=== PATIENT | female | born 1965 | race Caucasian/White ===

== ENCOUNTER → 2017-03-31 | Outpatient (CLI) | payer BC ==
[~2017-03-31] MED LIST: SIMV20TA2 PO
--- NOTE | 2017-03-31 14:33 | MAMMOGRAPHY REPORT ---
BILATERAL DIGITAL DIAGNOSTIC MAMMOGRAM TOMOSYNTHESIS WITH CAD AND TARGETED RIGHT ULTRASOUND: 03/31/20 17 CLINICAL HISTORY: The patient reports intermittent right breast pain in the periareolar region for ap proximately 3-4 weeks. She denies any new palpable lumps, nipple discharge, or other complaints. TECHNIQUE: Breast tomosynthesis in addition to standard 2D mammography was performed. Current study was also evaluated with a Computer Aided Detection (CAD) system. Bilateral CC and MLO 2-D and tomosy nthesis images were obtained. COMPARISON: Comparison is made to exams dated: 01/19/2012 mammogram - [facility], , and 02/11/2009. BREAST COMPOSITION: The tissue of both breasts is heterogeneously dense, which may obscure small mas ses. FINDINGS: There are no suspicious masses, calcifications, or areas of architectural distortion noted within either breast mammographically. Again noted are numerous round/oval circumscribed masses scat tered bilaterally, which are considered benign given the multiplicity and bilaterality and likely rep resent cysts. A few scattered bilateral benign-appearing calcifications are again noted. Targeted ultrasound was performed of the area of pain pointed out by the patient in the right periare olar and subareolar region. Multiple circumscribed anechoic masses are noted in the periareolar and subareolar breast, consistent with benign cysts. No suspicious masses or other suspicious sonographi c abnormalities are evident. IMPRESSION: ACR BI-RADS CATEGORY 2: BENIGN, TARGETED ULTRASOUND ACR BI-RADS CATEGORY 2: BENIGN No suspicious mammographic or sonographic abnormality at the site of intermittent right breast pain. There is no mammographic or targeted sonographic evidence of malignancy. Recommend clinical follow- up, and recommend routine bilateral screening mammograms in one year. The patient has been verbally notified of the results. Approximately 10% of breast cancers are not detected with mammography. A negative mammographic report should not delay biopsy if a clinically suggestive mass is present. Devorah Griffin M.D. /:03/31/2017 10:57:34 Program Developer: Katia AUGUSTINE)([place]), [facility] letter sent: Normal 1/2 BI-RADS Code: ACR BI-RADS Category 2: Benign Ultrasound BI-RADS: ACR BI-RADS Category 2: Benign
== END | disposition home or self-care (01) ==
LOC: C.MAMM 10:26
PROVIDERS: ATTEND Family Medicine
DX: N64.4 Mastodynia (principal)

== ENCOUNTER → 2017-05-12 | Outpatient (CLI) | payer BC | END | disposition home or self-care (01) | LOC: C.LABSPEC 16:45 | PROVIDERS: ATTEND Podiatrist Primary Podiatric Medicine | DX: B35.1 Tinea unguium (principal) ==

== ENCOUNTER 2020-02-01 12:51 | Inpatient (IN) ==
--- OUTSIDE RECORDS SUMMARY | 2020-02-01 12:53 | External Medical Summary | Continuity of Care Document ---
:1965 Author Name Eleanor Smyth, Provider Address Unavailable Unavailable , Care Team Providers Name Role Phone Aniceto Romeo M.D. Unavailable [email or web address] Unavailable Problems Active medical history not documented Allergies and Adverse Reactions Allergy history not documented Medications Medications not documented Procedures Procedures not documented Immunizations Immunizations not documented Plan of Treatment Planned Observations Planned Goals not documented Results No Known Results Results not documented Encounters Appointment; Aniceto Romeo M.D. 05-Jan-2010 13:30 Encounter Diagnosis: Problem not documented
--- OUTSIDE RECORDS SUMMARY | 2020-02-01 12:54 | External Medical Summary | Continuity of Care Document ---
:1965 Author Name Eleanor Smyth, Provider Address Unavailable Unavailable , Care Team Providers Name Role Phone Aniceto Romeo M.D. Unavailable [email or web address] [email or web address] CALL Unavailable Unavailable Problems Active [...]
[2020-02-01] MEDS ORDERED: MoRPHine SULFATE 10 MG/ML CARP/VIAL IV STA (15:28)
[2020-02-01] MEDS ORDERED: SODIUM CHLORIDE 0.9% 1000ML 1,000 ML IV ONE (15:28)
[2020-02-01] MEDS ORDERED: ONDANSETRON INJ 2 MG/ML 2 ML VIAL IV STA (15:28)
[2020-02-01 15:58] LABS: Basophils # (auto) 0.05 K/uL (0-0.2); Basophils % (auto) 0.3 %; Eosinophils # (auto) 0.08 K/uL (0-0.5); Eosinophils % (auto) 0.5 %; Hematocrit (blood only) 46.4 % (37-47); Hemoglobin 16.4 g/dL (12.0-16.0); Immature Granulocytes # (auto) 0.09 K/uL (0.00-0.02); Immature Granulocytes % (auto) 0.6 %; Lymphocytes # (auto) 2.45 K/uL (1.2-3.4); Lymphocytes % (auto) 15.6 %; Mean Corpuscular Hemoglobin 32.7 pg (25-34); Mean Corpuscular Hgb Conc 35.3 g/dL (32-36); Mean Corpuscular Volume 92.4 fL (80-100); Mean Platelet Volume 10.3 fL (7.4-10.4); Monocytes # (auto) 1.49 K/uL (0.11-0.59); Monocytes % (auto) 9.5 %; Neutrophils % (auto) 73.5 %; Platelet Count 350 K/uL (130-400); RDW Coefficient of Variation 14.6 % (11.5-14.5); RDW Standard Deviation 49.4 fL (36.4-46.3); Red Blood Count 5.02 M/uL (4.2-5.4); White Blood Count 15.66 K/uL (4.8-10.8)
[2020-02-01 16:03] LABS: iSTAT Creatinine 1.1 mg/dl (0.6-1.3); iSTAT Ionized Calcium 1.2 mmol/l (1.12-1.32); iSTAT Potassium 4.5 mmol/L (3.3-5.0)
[2020-02-01 16:10] LABS: INR 0.9 (0.9-1.1); Partial Thromboplastin Time 28.8 Seconds (21.0-31.0); Prothrombin Time 9.9 Seconds (9.0-12.0)
[2020-02-01 16:15] LABS: Albumin Level 3.8 gm/dl (3.4-5.0); BUN Creatinine Ratio 13.4 (10-20); Calcium 9.4 mg/dl (8.5-10.1); Creatinine Clr Calc Pharmacy 66.9 ml/min; Est GFR (African American) 58.2; Est GFR (Non-African American) 50.2; Potassium 4.4 mmol/L (3.5-5.1)
[2020-02-01 16:17] LABS: Albumin Globulin Ratio 0.9 (0.9-2); Bilirubin,Total 0.6 mg/dl (0.2-1); Globulin 4.3 gm/dl (2.5-4.0); Total Protein 8.1 gm/dl (6.4-8.2)
--- NOTE | 2020-02-01 16:34 | Emergency Department Note ---
History of Present Illness General Chief Complaint: Flank Pain Stated Complaint: PAIN LOWER RT SIDE Time Seen by Provider: 02/01/20 15:02 Source: patient Mode of arrival: ambulatory Limitations: no limitations History of Present Illness Provider Complaint: abdominal pain and flank pain Onset (ago): 6 day(s) Pain Consistency: intermittent Radiation: RLQ Migration to: RLQ Severity: severe Maximum Pain Intensity: 8 Current Pain Intensity: 8 Quality: + sharp Relieved By: + nothing Exacerbated By: + eating (red meat) Associated Symptoms: + nausea and + anorexia; no vomiting, no diarrhea, no fever, no chills, no constipation, no dysuria, no hematemesis, no hematochezia, no hematuria, no headache, no neck pain, no back pain, no chest pain and no weakness Treatments prior to arrival: none This 54-year-old female patient presents to the emergency department today for evaluation of right lower quadrant abdominal pain. Pain began last Tuesday and has been intermittent. The patient states pain seems to flareup the day after she eats red meat. On Tuesday, the pain returned and at 530 this morning, it returned again and was significantly worse. The patient states the pain seems to be in the right lower quadrant and radiates around toward the right flank pain she does have a history of kidney stones, but states this pain is much different and much lower. The patient states there has been no hematuria. There is no diarrhea or constipation. She did drink prune juice earlier today, and was concerned for possible bowel blockage, but states she had normal bowel movements yesterday and has had several loose, small bowel movements since that time. Patient denies any fever. There has been a decreased appetite. She denies any numbness, tingling, weakness, chest pain, dyspnea, dizziness, vomiting, or other associated symptoms. Home Medications Home Medications Medication Instructions Recorded Confirmed Type No Known Home Medications 02/01/20 02/01/20 History Allergies Allergy/AdvReac Type Severity Reaction Status Date / Time No Known Allergies Allergy Unknown Verified 02/01/20 15:48 Past Med/Surg History Medical History Hyperlipidemia TIA (transient ischemic attack) Social History Smoking Status: Never smoker Feels Safe at Home: Yes Review of Systems A total of 10 systems reviewed and were otherwise negative Physical Exam Vital Signs: Vital Signs - 24 hr 02/01/20 13:10 02/01/20 16:00 02/01/20 16:30 Temperature 36.8 C Temperature Source Oral Pulse Rate 91 H Pulse Rate [Right Finger] 56 L Respiratory Rate 18 20 Blood Pressure 140/94 Blood Pressure [Le ft Arm] 117/69 Blood Pressure Christy n 109 Blood Pressure Christy n [Left Arm] 85 Pulse Oximetry 98 93 Oxygen Delivery Me thod Room Air Room Air Room Air Sepsis Recent Feve r Within 48 Hours No Sepsis New/Unexpla ined Change in Men lizz Status No Sepsis Action Take n by Nursing No Action Required 02/01/20 16:38 Temperature 37.2 C Temperature Source Oral Pulse Rate Pulse Rate [Right Finger] Respiratory Rate Blood Pressure Blood Pressure [Le ft Arm] Blood Pressure Christy n Blood Pressure Christy n [Left Arm] Pulse Oximetry Oxygen Delivery Me thod Sepsis Recent Feve r Within 48 Hours Sepsis New/Unexpla ined Change in Men lizz Status Sepsis Action Take n by Nursing Physical Exam: VITALS: Vitals are noted on the nurse's note and reviewed by myself. Vital signs stable. GENERAL: This is a 54-year-old obese white female, in no acute distress, nondiaphoretic, well-developed well-nourished. SKIN: The skin was without rashes, erythema, edema, or bruising. There is no tenting of the skin. Capillary refill less than 2 seconds. HEAD: Normocephalic atraumatic. EYES: Conjunctivae without injection, sclerae without icterus. NECK: Supple without nuchal rigidity. No lymphadenopathy. No thyromegaly. Cervical spine is nontender. No JVD. HEART: Regular rate and rhythm without murmurs gallops or rubs. LUNGS: Clear to auscultation bilaterally without wheezes, rales or rhonchi. No retractions or accessory muscle use. ABDOMEN: Positive bowel sounds x 4. Normal tympanic percussion. Right lower quadrant tenderness palpation over McBurney's point. Abdomen otherwise soft, nontender, without masses or organomegaly. Hopper sign negative. No guarding or rebound tenderness. No CVA tenderness to palpation. MUSCULOSKELETAL: No muscle atrophy, erythema, or edema noted. Full range of motion without joint tenderness in all extremities. No tenderness to palpation. Normal gait. Strength 5/5 throughout. NEURO: Patient was alert and oriented to person place and time. Normal s ensation to light and sharp touch. No focal neurological deficits. Course Course The patient was seen and evaluated as above. An order was placed for continuous cardiac monitoring. The monitor shows a normal sinus rhythm at a rate of 91 bpm. IV access obtained, labs drawn. Patient medicated with IV fluids, Zofran, morphine. Imaging performed and reviewed by myself and radiologist as noted. Labs reviewed by myself. I discussed the findings with the patient at bedside. She is experiencing increased pain. She was given repeat dose of morphine. I discussed the case with Dr. Escobedo, urologist on-call. He was agreeable with admission to medicine, keeping the patient n.p.o. after midnight. Will watch for the consult. I discussed the case with the security project manager. I [facility] the case [facility] She did agree to see and evaluate the patient. Administered Medications Discontinued Medications Sodium Chloride (Nss 1000ml) 1,000 mls @ 999 mls/hr IV .Q1H1M ONE Stop: 02/01/20 16:28 Last Admin: 02/01/20 16:12 Dose: 999 mls/hr Documented by: [id number] Ioversol (Ioversol 100ml) 93 ml IV ONCE ONE Stop: 02/01/20 16:43 Last Admin: 02/01/20 16:44 Dose: 93 ml Documented by: [id number] Morphine Sulfate (Morphine Sulfate 10 Mg/Ml Carp/Vial) 8 mg IV NOW STA Stop: 02/01/20 15:29 Last Admin: 02/01/20 16:13 Dose: 8 mg Documented by: [id number] Ondansetron HCl (Ondansetron Inj 2 Mg/Ml 2 Ml Vial) 4 mg IV NOW STA Stop: 02/01/20 15:29 Last Admin: 02/01/20 16:13 Dose: 4 mg Documented by: [id number] Medical Decision Making Differential Diagnosis + UTI, + obstruction, + mesenteric ischemia, + aortic pathology, + infections, + inflammatory bowel disease, + renal colic, + ectopic (female), + ovarian torsion (female), + tubo-ovarian abscesses (female), + pelvic inflammatory disease (female), + abdominal pain, + appendicitis, + calculus of kidney, + constipation, + diverticulitis, + endometriosis, + gastroenteritis, + pancreatitis and + small bowel obstruction Medical Records Attestation: I reviewed the patient's medical records. Home Medications Current Medication List: was personally reviewed by me Laboratory Data Attestation: I reviewed the patient's lab results. Leukocytosis of 15,000. No significant anemia or thrombocytopenia. Renal, hepatic function electrolytes without significant abnormality. Coags normal. Urinalysis cloudy and positive for calcium oxalate crystals, but no bacteria or nitrates. This does appear to be contaminated specimen. Result diagrams: 02/01/20 15:45 02/01/20 15:45 Lab Results 02/01/20 02/01/20 02/01/20 Range/Units 15:45 15:45 15:45 WBC 15.66 H (4.8-10.8) K/uL RBC 5.02 (4.2-5.4) M/uL Hgb 16.4 H (12.0-16.0) g/dL POC Hgb (12.0-16.0) g/dl Hct 46.4 (37-47) % POC Hct (37-47) % MCV 92.4 (80-100) fL MCH 32.7 (25-34) pg MCHC 35.3 (32-36) g/dL RDW Std Deviation 49.4 H (36.4-46.3) fL RDW Coeff of Merly 14.6 H (11.5-14.5) % Plt Count 350 (130-400) K/uL MPV 10.3 (7.4-10.4) fL Immature Gran % (Auto) 0.6 % Neut % (Auto) 73.5 % Lymph % (Auto) 15.6 % Metcalfe % (Auto) 9.5 % Eos % (Auto) 0.5 % Baso % (Auto) 0.3 % Neut # (Auto) 11.50 H (1.4-6.5) K/uL Lymph # (Auto) 2.45 (1.2-3.4) K/uL Metcalfe # (Auto) 1.49 H (0.11-0.59) K/uL Eos # (Auto) 0.08 (0-0.5) K/uL Baso # (Auto) 0.05 (0-0.2) K/uL Immature Gran # (Auto) 0.09 H (0.00-0.02) K/uL PT 9.9 (9.0-12.0) Seconds INR 0.9 (0.9-1.1) APTT 28.8 (21.0-31.0) Seconds PTT Ratio 1.0 POC Sodium (135-144) mmol/L Sodium 139 (136-145) mmol/L POC Potassium (3.3-5.0) mmol/L Potassium 4.4 (3.5-5.1) mmol/L POC Chloride (101-112) mmol/L Chloride 108 H (98-107) mmol/L Carbon Dioxide 24 (21-32) mmol/L POC Total CO2 (24-31) mmol/L Anion Gap 7.0 (3-11) POC Anion Gap (16-25) mmol/L POC BUN (7-18) mg/dl BUN 16 (7-18) mg/dl Creatinine 1.22 H (0.6-1.2) mg/dl POC Creatinine (0.6-1.3) mg/dl Est Cr Clr Drug Dosing 66.9 ml/min Est GFR ( Amer) 58.2 Est GFR (Non-Af Amer) 50.2 BUN/Creatinine Ratio 13.4 (10-20) Glucose 91 (70-99) mg/dl POC Glucose (other) (70-99) mg/dl Calcium 9.4 (8.5-10.1) mg/dl POC Ioniz Calcium Kenney (1.12-1.32) mmol/l Total Bilirubin 0.6 (0.2-1) mg/dl AST 23 (15-37) U/L ALT 25 (12-78) U/L Alkaline Phosphatase 96 (45-117) U/L Total Protein 8.1 (6.4-8.2) gm/dl Albumin 3.8 (3.4-5.0) gm/dl Globulin 4.3 H (2.5-4.0) gm/dl Albumin/Globulin Ratio 0.9 (0.9-2) Lipase 85 (73-393) U/L Urine Color Urine Appearance (Clear) Urine pH (4.5-7.5) Ur Specific Brooks (1.000-1.030) Urine Protein (Negative) Urine Glucose (UA) (Negative) Urine Ketones (Negative) Urine Blood (Negative) Urine Nitrite (Negative) Urine Bilirubin (Negative) Urine Urobilinogen (Negative) Ur Leukocyte Esterase (Negative) Urine WBC (Auto) (0-5) /hpf Urine RBC (Auto) (0-4) /hpf U Hyaline Cast (Auto) (0-5) /lpf U Epithel Cells (Auto) (0-5) /lpf Urine Bacteria (Auto) (Negative) Urine Crystals (None Prsent) Calcium Oxalate Crystal (None Prsent) POC Ur Test (NEG) 02/01/20 02/01/20 02/01/20 Range/Units 15:50 16:00 16:00 WBC (4.8-10.8) K/uL RBC (4.2-5.4) M/uL Hgb (12.0-16.0) g/dL POC Hgb 17.0 H (12.0-16.0) g/dl Hct (37-47) % POC Hct 50 H (37-47) % MCV (80-100) fL MCH (25-34) pg MCHC (32-36) g/dL RDW Std Deviation (36.4-46.3) fL RDW Coeff of Merly (11.5-14.5) % Plt Count (130-400) K/uL MPV (7.4-10.4) fL Immature Gran % (Auto) % Neut % (Auto) % Lymph % (Auto) % Metcalfe % (Auto) % Eos % (Auto) % Baso % (Auto) % Neut # (Auto) (1.4-6.5) K/uL Lymph # (Auto) (1.2-3.4) K/uL Metcalfe # (Auto) (0.11-0.59) K/uL Eos # (Auto) (0-0.5) K/uL Baso # (Auto) (0-0.2) K/uL Immature Gran # (Auto) (0.00-0.02) K/uL PT (9.0-12.0) Seconds INR (0.9-1.1) APTT (21.0-31.0) Seconds PTT Ratio POC Sodium 140 (135-144) mmol/L Sodium (136-145) mmol/L POC Potassium 4.5 (3.3-5.0) mmol/L Potassium (3.5-5.1) mmol/L POC Chloride 106 (101-112) mmol/L Chloride (98-107) mmol/L Carbon Dioxide (21-32) mmol/L POC Total CO2 23 L (24-31) mmol/L Anion Gap (3-11) POC Anion Gap 16.0 (16-25) mmol/L POC BUN 18 (7-18) mg/dl BUN (7-18) mg/dl Creatinine (0.6-1.2) mg/dl POC Creatinine 1.1 (0.6-1.3) mg/dl Est Cr Clr Drug Dosing ml/min Est GFR ( Amer) Est GFR (Non-Af Amer) BUN/Creatinine Ratio (10-20) Glucose (70-99) mg/dl POC Glucose (other) 95 (70-99) mg/dl Calcium (8.5-10.1) mg/dl POC Ioniz Calcium Kenney 1.20 (1.12-1.32) mmol/l Total Bilirubin (0.2-1) mg/dl AST (15-37) U/L ALT (12-78) U/L Alkaline Phosphatase (45-117) U/L Total Protein (6.4-8.2) gm/dl Albumin (3.4-5.0) gm/dl Globulin (2.5-4.0) gm/dl Albumin/Globulin Ratio (0.9-2) Lipase (73-393) U/L Urine Color Yellow Urine Appearance Cloudy A (Clear) Urine pH 5.0 (4.5-7.5) Ur Specific Brooks 1.028 (1.000-1.030) Urine Protein Negative (Negative) Urine Glucose (UA) Negative (Negative) Urine Ketones Negative (Negative) Urine Blood 3+ H (Negative) Urine Nitrite Negative (Negative) Urine Bilirubin Negative (Negative) Urine Urobilinogen Negative (Negative) Ur Leukocyte Esterase Trace H (Negative) Urine WBC (Auto) 5-10 H (0-5) /hpf Urine RBC (Auto) 0-4 (0-4) /hpf U Hyaline Cast (Auto) 1-5 (0-5) /lpf U Epithel Cells (Auto) >30 H (0-5) /lpf Urine Bacteria (Auto) Negative (Negative) Urine Crystals Calcium Oxalate A (None Prsent) Calcium Oxalate Crystal Present A (None Prsent) POC Ur Test NEG (NEG) Imaging Data Radiologist's Impression: CT abd pelvis IV con only CLINICAL HISTORY: Right lower quadrant abdominal pain COMPARISON STUDY: January 2012 TECHNIQUE: The patient was scanned in a dynamic helical fashion during intravenous administration of 93 cc of Optiray 320 A dose lowering technique was utilized adhering to the principles of ALARA. CT DOSE: 957.27 mGy.cm FINDINGS: Lower chest: There are bibasilar atelectatic changes. Liver: There is scattered hypodense hepatic lesions, likely representing cysts. Several these are new or larger than when compared the preceding study. Gallbladder: Surgically absent Spleen: Normal in size and attenuation. Pancreas: Unremarkable. Adrenal glands: r there is a 12 mm left adrenal nodule minimally larger than on the preceding study. Kidneys: There is right-sided hydronephrosis and hydroureter. There is right- sided perinephric stranding. There is a diminished right-sided nephrogram. There is a mid right ureteral calculus measuring 7.5 mm. No bladder calculi are visualized Bowel: There are no transition zones to indicate bowel obstruction. The appendix appears normal. There is no acute diverticulitis. There are multiple fluid- filled colonic and small bowel loops with scattered air-fluid levels. This may represent ileus. Peritoneum: There is no intraperitoneal free air or abdominal ascites. Vasculature: The abdominal aorta is normal in course and caliber. Adenopathy: None. Pelvic viscera: The uterus is surgically absent. Skeletal structures: No destructive osseous lesions are seen. IMPRESSION: 1. 7.5 mm mid right ureteral calculus at the S2 level with secondary hydroureteronephrosis, perinephric stranding, and periureteral stranding 2. Normal appendix 3. No evidence of bowel obstruction. No evidence of free air 4. Multiple fluid-filled loops of large and small bowel with scattered air-fluid levels. This likely represents an ileus. ACT 112: Negative or not required by law. Electronically signed by: Krishna James M.D. 02/01/2020 4:56 PM Blood Pressure Blood Pressure Findings: Normal blood pressure MDM Narrative This 54-year-old female patient presents the emergency department today for evaluation of right lower quadrant abdominal pain radiating to the right flank pain. The patient does have a history of kidney stones, but states this pain is different. Given the location of the pain, we did elect to perform laboratory evaluation and CT imaging to evaluate these symptoms. CT consistent with 7.5 mm mid right ureteral calculus with secondary hydroureteronephrosis, perinephric stranding, and periureteral stranding. Urinalysis not clearly infected, the patient does have a leukocytosis of 15,000. She was medicated here in the ED with IV morphine and ceftriaxone. She was given IV fluids. I did speak with the urologist, who was agreeable with admission. I did discuss this recommendation with the patient at bedside, and after discussion regarding the benefits versus risks associated with admission, she would like to proceed with admission to the hospital. [facility] Please see hospitalist dictation regarding ongoing management care of this patient. The chart was completed utilizing [employer] Speech voice recognition software. Grammatical errors, random word insertions, pronoun errors, and incomplete sente nces are an occasional consequence of this system due to software limitations, ambient noise, and hardware issues. Any formal questions or concerns about the content, text, or information contained within the body of this dictation should be directly addressed to the provider for clarification. Impression & Plan Acute right lower quadrant pain, Right ureteral calculus Discharge Plan Visit Data Chief Complaint: Flank Pain Stated Complaint: PAIN LOWER RT SIDE ED Provider: Sampson Awan ED Midlevel Provider: Amber Caal Discharge Problem: Acute right lower quadrant pain, Right ureteral calculus Patient Disposition: Admitted As Inpatient Forms Stand Alone Forms: My [employer] Prescriptions Prescriptions: No Action No Known Home Medications RF: 0 Referrals Referrals: Mane Lemons MD [Primary Care Provider] -
[2020-02-01] MEDS ORDERED: IOVERSOL 100ml IV ONE (16:42)
[2020-02-01 16:45] LABS: Appearance Urine Cloudy (Clear); Bacteria Urine Automated Negative (Negative); Bilirubin Urine Negative (Negative); Blood Urine 3+ (Negative); Color Urine Yellow; Epithelial Cell Urine Auto >30 /lpf (0-5); Glucose Urine UA Negative (Negative); Ketones Urine Negative (Negative); Leukocyte Esterase Urine Trace (Negative); Nitrite Urine Negative (Negative); Protein Urine Negative (Negative); RBC Urine Automated 0-4 /hpf (0-4); Specific Gravity Urine 1.028 (1.000-1.030); Urobilinogen Urine Negative (Negative)
[2020-02-01 16:56] LABS: Calcium Oxalate Crystals Urine Present (None Prsent)
--- NOTE | 2020-02-01 16:58 | CT Scan Report ---
CT abd pelvis IV con only CLINICAL HISTORY: Right lower quadrant abdominal pain COMPARISON STUDY: January 2012 TECHNIQUE: The patient was scanned in a dynamic helical fashion during intravenous administration of 93 cc of Optiray 320 A dose lowering technique was utilized adhering to the principles of ALARA. CT DOSE: 957.27 mGy.cm FINDINGS: Lower chest: There are bibasilar atelectatic changes. Liver: There is scattered hypodense hepatic lesions, likely representing cysts. Several these are new or larger than when compared the preceding study. Gallbladder: Surgically absent Spleen: Normal in size and attenuation. Pancreas: Unremarkable. Adrenal glands: r there is a 12 mm left adrenal nodule minimally larger than on the preceding study. Kidneys: There is right-sided hydronephrosis and hydroureter. There is right-sided perinephric strand ing. There is a diminished right-sided nephrogram. There is a mid right ureteral calculus measuring 7 .5 mm. No bladder calculi are visualized Bowel: There are no transition zones to indicate bowel obstruction. The appendix appears normal. Ther e is no acute diverticulitis. There are multiple fluid-filled colonic and small bowel loops with scat tered air-fluid levels. This may represent ileus. Peritoneum: There is no intraperitoneal free air or abdominal ascites. Vasculature: The abdominal aorta is normal in course and caliber. Adenopathy: None. Pelvic viscera: The uterus is surgically absent. Skeletal structures: No destructive osseous lesions are seen. IMPRESSION: 1. 7.5 mm mid right ureteral calculus at the S2 level with secondary hydroureteronephrosis, perinephr ic stranding, and periureteral stranding 2. Normal appendix 3. No evidence of bowel obstruction. No evidence of free air 4. Multiple fluid-filled loops of large and small bowel with scattered air-fluid levels. This likely represents an ileus. ACT 112: Negative or not required by law. Electronically signed by: Krishna James M.D. 02/01/2020 4:56 PM
[2020-02-01] MEDS ORDERED: cefTRIAXone SODIUM 2,000 MG/70 ML BAG IV STA (17:03)
[2020-02-01] MEDS ORDERED: MoRPHine SULFATE 4 MG/ML 1 ML CARP\\VIAL IV STA (17:14)
--- NOTE | 2020-02-01 18:21 | History & Physical Report ---
Date of Service February 01, 2020 Assessment & Plan (1) Right ureteral calculus: (2) Hydronephrosis, right: Possible pyelonephrosis Pt is 54 y/o F with PMH dyslipidemia, possible TIA, kidney stones, tobacco use presented to ER with c/o R flank pain x 5 days, worsened today. Denies fever/chi lls, N/V, urinary symptoms. Did drink a lot of prune juice today and has soft stools In ER pt afebrile, vitals stable. WBC: 15, BUN: 16, CR: 1.2, GFR: 50, UA: 3+ blood, trace leuk esterase, 5-10 WBC, no nitrates, no bacteria, CT ABD/PELVIS 7.5 mm mid right ureteral calculus at the S2 level with secondary hydroureteronephrosis, perinephric stranding, and periureteral stranding, Normal appendix, -In ER given 1 mL NSS, morphine total 12 mg IV, Zofran, Rocephin 2 g IV -Urine culture, blood cultures pending -Continue Rocephin daily -Strain all urine -N.p.o. -IVF -Dilaudid as needed pain, Zofran PRN nausea -CBC, BMP in a.m. -We will do preop COVID test in anticipation of patient requiring procedure -Urology consult, ER contacted Dr. Escobedo who is aware (3) CHARMAINE (acute kidney injury): BUN: 16, CR: 1.2, GFR: 50. Patient with baseline GFR greater than 60 with creatinine: 0.9 Likely secondary to obstructing ureteral calculus -Monitor renal functions -Avoid Toradol for now and other nephrotoxic agents (4) Ileus: CT ABD/PELVIS: Multiple fluid-filled loops of large and small bowel with scattered air-fluid levels. This likely represents an ileus. No evidence of bowel obstruction. No evidence of free air -NPO for now -IVF -Monitor. Consider KUB tomorrow or following day. Will hold on ordering right now in case of urology procedure and needed additional KUB for after procedure, as pt very worried about insurance coverage and her costs (5) Hyperlipidemia: Patient refuses medications outpatient (6) Tobacco use: -Smoking cessation encouraged -Patient denies nicotine patch at this time DVT Prophylaxis -SCDs Full Code Follows with Dr Lemons for routine care Pt was seen and care coordinated with Dr Sanders. See addendum History of Present Illness Chief Complaint: Right flank pain Primary Care Provider: Mane Lemons MD Pt is 54 y/o F with PMH dyslipidemia, possible TIA, kidney stones, tobacco use presented to ER with c/o R flank pain x 5 days. Patient states 5 days ago started with some right flank tenderness that radiated to right lower quadrant. Pain had been waxing and waning however this morning pain increased and has been constant throughout the day. Patient tried taking Aleve earlier in the week taking total 4 tablets without relief. Patient thought maybe flank pain was secondary to constipation however reports has been moving her bowels regularly. Today patient drinks 32 ounces of prune juice and since has had soft stools. Denies dysuria, hematuria, urinary frequency, urinary retention. History of kidney stones in the past needing stent. Denies fever/chills, diaphoresis, N/V, hematochezia, melena, VEL[place]SQUEZ, dizziness, syncope, vision changes, CP, SOB, orthopnea, palpitations, cough, sore throat, choking, otalgia, rhinorrhea, extremity weakness, extremity edema, rashes. Allergies Allergy/AdvReac Type Severity Reaction Status Date / Time No Known Allergies Allergy Unknown Verified 02/01/20 15:48 Home Medications Home Medications Medication Instructions Recorded Confirmed Type No Known Home Medications 02/01/20 02/01/20 History Past Med/Surg History Medical History Hyperlipidemia Kidney stones TIA (transient ischemic attack) Tobacco use Surgical History (Updated 02/01/20 @ 18:26 by Scarlett Deng PA-C) History of cholecystectomy History of hysterectomy Hx of tonsillectomy Family History (Updated 02/01/20 @ 18:26 by Scarlett Deng PA-C) Other Cancer Social History (Updated 02/01/20 @ 18:27 by Scarlett Deng PA-C) Smoking Status: Current every day smoker Cigarettes Per Day: 1 ppd x 28 years; Second Hand Exposure: No; Do You Dip or Chew Tobacco: No; Tobacco Cessation Education Requested by Patient: No Hx Alcohol Use: Yes Alcohol type: hard liquor Alcohol Intake Frequency: 2-4 x/Month Alcohol Intake Frequency Comment: 1-2 beers once week Hx Substance Use: No Preferred Language: Korean 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 Current Living Situation: Spouse and Family Other Information That Helps Us Care for You: No Feels Safe at Home: Yes Safety Concerns: Feels Safe At This Time Review of Systems Review of Systems: All systems reviewed & are unremarkable except as noted in HPI & below Physical Exam Physical Exam: General: no distress, overweight Head: normocephalic, atraumatic Eyes: PERRL, EOM's intact, conjunctiva non-injected, anicteric ENT: normal inspection external ears, nose, mucous membranes moist Neck: supple, trachea midline Lungs: clear, no respiratory distress, no wheezing/rhonchi/rales CV: RRR, no murmur, no JVD, no pretibial edema Abd: normal BS, soft, +mild tenderness to palpation to R CVA, right flank, RLQ without rebound or guarding Ext: no cyanosis, no calf tenderness Neuro: A&O x 3, no focal deficits noted, normal affect Skin: warm, dry Results & Data Results & Data ([facility]) Vital Signs (Past 12 Hours) Vital Signs Temp Pulse Pulse Resp BP BP Pulse Ox 02/01/20 16:38 37.2 C 02/01/20 16:30 56 L 20 117/69 93 02/01/20 13:10 36.8 C 91 H 18 140/94 98 Laboratory Results Short CBC 02/01/20 Range/Units 15:45 WBC 15.66 H (4.8-10.8) K/uL Hgb 16.4 H (12.0-16.0) g/dL Hct 46.4 (37-47) % Plt Count 350 (130-400) K/uL BMP 02/01/20 15:45 Sodium 139 Potassium 4.4 Chloride 108 H Carbon Dioxide 24 BUN 16 Creatinine 1.22 H Glucose 91 Calcium 9.4 Liver Function 02/01/20 Range/Units 15:45 Total Bilirubin 0.6 (0.2-1) mg/dl AST 23 (15-37) U/L ALT 25 (12-78) U/L Alkaline Phosphatase 96 (45-117) U/L Albumin 3.8 (3.4-5.0) gm/dl Urine 02/01/20 Range/Units 16:00 Urine Color Yellow Urine Appearance Cloudy A (Clear) Urine pH 5.0 (4.5-7.5) Ur Specific [place] 1.028 (1.000-1.030) Urine Protein Negative (Negative) Urine Glucose (UA) Negative (Negative) Diagnostic Findings CT ABD/PELVIS: IMPRESSION: 1. 7.5 mm mid right ureteral calculus at the S2 level with secondary hydroureteronephrosis, perinephric stranding, and periureteral stranding 2. Normal appendix 3. No evidence of bowel obstruction. No evidence of free air 4. Multiple fluid-filled loops of large and small bowel with scattered air-fluid levels. This likely represents an ileus. Code Status & VTE Plan VTE Prophylaxis Plan VTE Prophylaxis will be ordered: Yes Supervising Physician Co-Signing Physician Notes Attending Addendum: care coordinated with SHAINA Tomlinson please refer to her notes for full details, I agree with her notes patient seen and examined, records reviewed by myself as well on exam, patient seen resting in bed, comfortable, sleeping but easily awakened pain well controlled no other symptoms VS noted and reviewed oriented x 3, not in distress, speaks in sentences with no effort nor accessory muscle use normal rate, regular rhythm, no murmurs clear breath sounds bilaterally non distended, soft, nontender no CVA tenderness no bipedal edema, erythema, warmth no neuro deficits WBC 15.6 Hg 16[address] abd/pelvis: 1. 7.5 mm mid right ureteral calculus at the S2 level with secondary hydroureteronephrosis, perinephric stranding, and periureteral stranding 2. Normal appendix 3. No evidence of bowel obstruction. No evidence of free air 4. Multiple fluid-filled loops of large and small bowel with scattered air-fluid levels. This likely represents an ileus. ASSESSMENT AND PLAN URETERAL STONE with possible Pyelonephritis Obstructive Uropathy crea 1.2, baseline 0.9 NPO, IV fluids, Urology consulted Ceftriaxone IV other diagnoses and plan of care as per SHAINA Tomlinson. notes Hank Sanders MD
[2020-02-01] MEDS ORDERED: ACETAMINOPHEN 325 MG TAB PO PRN (18:51)
[2020-02-01] MEDS ORDERED: ONDANSETRON INJ 2 MG/ML 2 ML VIAL IV PRN (18:51)
[2020-02-01] MEDS: HYDROmorphone INJ 0.5 MG/0.5 ML SYR IV PRN (19:30)
[2020-02-01] MEDS: SODIUM CHLORIDE 0.9% 1000ML 1,000 ML IV SCH (19:30)
[2020-02-02] MEDS: HYDROmorphone INJ 0.5 MG/0.5 ML SYR IV PRN ×2 (00:08→04:55)
[2020-02-02] MEDS: SODIUM CHLORIDE 0.9% 1000ML 1,000 ML IV SCH (04:51)
[2020-02-02 07:17] LABS: Basophils # (auto) 0.04 K/uL (0-0.2); Basophils % (auto) 0.4 %; Eosinophils # (auto) 0.17 K/uL (0-0.5); Eosinophils % (auto) 1.7 %; Hematocrit (blood only) 38.9 % (37-47); Immature Granulocytes # (auto) 0.05 K/uL (0.00-0.02); Immature Granulocytes % (auto) 0.5 %; Lymphocytes # (auto) 2.87 K/uL (1.2-3.4); Lymphocytes % (auto) 28.7 %; Mean Corpuscular Hgb Conc 33.4 g/dL (32-36); Mean Corpuscular Volume 92.8 fL (80-100); Mean Platelet Volume 10.5 fL (7.4-10.4); Neutrophils # (auto) 5.98 K/uL (1.4-6.5); Neutrophils % (auto) 59.7 %; Platelet Count 298 K/uL (130-400); RDW Coefficient of Variation 14.7 % (11.5-14.5); Red Blood Count 4.19 M/uL (4.2-5.4); White Blood Count 10.01 K/uL (4.8-10.8)
[2020-02-02 07:38] LABS: BUN Creatinine Ratio 12.2 (10-20); Calcium 8.4 mg/dl (8.5-10.1); Est GFR (African American) 75.8; Est GFR (Non-African American) 65.4
--- NOTE | 2020-02-02 08:11 | Anesthesiology Consultation ---
Date of Service February 02, 2020 Assessment & Plan (1) Encounter for pre-operative examination: Chart Review Chart Review: Acceptable Risk for Surgery History Surgery Operation Date: 02/02/20 07:30 Proposed Procedures p Cystoscopy, Right Ureteral Stent Insertion/Removal(Right) - Óscar Escobedo DO Height/Weight Height: 5 ft 10 in Weight: 97.5 kg Allergies Allergy/AdvReac Type Severity Reaction Status Date / Time No Known Allergies Allergy Unknown Verified 02/01/20 15:48 Medications Home Medications Medication Instructions Recorded Confirmed Last Taken No Known Home Medications 02/01/20 02/01/20 Unknown Active Medications Generic Name Dose Route Start Last Admin Trade Name Freq PRN Reason Stop Dose Admin Hydromorphone HCl 0.5 mg 02/01/20 18:51 02/02/20 04:55 Hydromorphone Inj 0.5 Mg/0.5 Ml Syr IV 02/15/20 18:50 0.5 mg Q4H PRN Administration Pain Sodium Chloride 1,000 mls @ 100 mls/hr 02/01/20 18:51 02/02/20 04:51 Nss 1000ml IV 02/02/20 14:50 100 mls/hr .Q10H MARIA FERNANDA Administration Past Medical History Medical History Hyperlipidemia Kidney stones TIA (transient ischemic attack) Tobacco use Past Family History Family History Other Cancer Past Surgical History Surgical History History of cholecystectomy History of hysterectomy Hx of tonsillectomy Social History Smoking Status: Current every day smoker tobacco type: cigarettes Smoking cigarettes per day: 1 ppd x 28 years Do You Dip or Chew Tobacco: No Hx Alcohol Use: Yes Alcohol type: hard liquor alcohol intake frequency: a few times a month Hx Substance Use: No substance use type: does not use Physical Exam Vital Signs Last Vital Signs Temp 36.8 C 02/02/20 07:37 Pulse 61 02/02/20 07:37 Resp 20 02/02/20 07:37 BP 99/59 L 02/02/20 07:37 Pulse Ox 90 02/02/20 07:37 Testing Laboratory Results 02/02/20 06:12 PT 9.9 Seconds (9.0-12.0) 02/01/20 15:45 INR 0.9 (0.9-1.1) 02/01/20 15:45 APTT 28.8 Seconds (21.0-31.0) 02/01/20 15:45 Urine Color Yellow 02/01/20 16:00 Urine Appearance Cloudy (Clear) A 02/01/20 16:00 Urine pH 5.0 (4.5-7.5) 02/01/20 16:00 Ur Specific Levels 1.028 (1.000-1.030) 02/01/20 16:00 Urine Protein Negative (Negative) 02/01/20 16:00 Urine Glucose (UA) Negative (Negative) 02/01/20 16:00 Urine Ketones Negative (Negative) 02/01/20 16:00 Urine Nitrite Negative (Negative) 02/01/20 16:00 Ur Leukocyte Esterase Trace (Negative) H 02/01/20 16:00 Urine WBC (Auto) 5-10 /hpf (0-5) H 02/01/20 16:00 Urine RBC (Auto) 0-4 /hpf (0-4) 02/01/20 16:00 U Hyaline Cast (Auto) 1-5 /lpf (0-5) 02/01/20 16:00 U Epithel Cells (Auto) >30 /lpf (0-5) H 02/01/20 16:00 Urine Bacteria (Auto) Negative (Negative) 02/01/20 16:00 02/01/20 16:00 POC Ur Test NEG
[2020-02-02] MEDS ORDERED: PROPOFOL IV EMULSION 10 MG/ML 20 ML VIAL IV ONE (10:35)
[2020-02-02] MEDS ORDERED: MIDAZOLAM HCL 1 MG/ML 2ML VIAL ONE ×2 (10:35→10:59)
[2020-02-02] MEDS ORDERED: fentaNYL citrate 100 MCG/2 ML VIAL ONE (10:35)
[2020-02-02] MEDS ORDERED: LIDOCAINE HCL 2% 2 ML VIAL/AMP(20MG/ML) INFIL ONE (10:35)
[2020-02-02] MEDS ORDERED: ONDANSETRON INJ 2 MG/ML 2 ML VIAL ONE (10:36)
--- NOTE | 2020-02-02 10:39 | Urology Consultation ---
Date of Consultation February 02, 2020 Assessment & Plan (1) CHARMAINE (acute kidney injury): (2) Hydronephrosis, right: (3) Right ureteral calculus: Risks and benefits discussed at length for procedure. These include bleeding, infection, injury to surrounding tissues or organs, and risks associated with anesthesia. Patient states understanding and agrees to proceed. Will sign consent and schedule. Patient with 7 mm ob right ureteral stone with hydronephrosis. No family history of malignancy. Will proceed with cystoscopy and right stent placement. History of Present Illness Attending Physician: Daily Fang DO History of Present Illness New consultation for patient with stone, discomfort, obstruction, and ill feelings. Patient developed sudden onset of pain into flank going down and radiating into groin and back in waves comes and goes. Can be severe at times. Discussed and reviewed patient's family history for any history of stone disease. Also, discussed patient's medical surgery history especially related to any history of urinary issues or stone disease. Patient was admitted and is undergoing observation. Allergies Allergy/AdvReac Type Severity Reaction Status Date / Time No Known Allergies Allergy Unknown Verified 02/01/20 15:48 Home Medications Home Medications Medication Instructions Recorded Confirmed Type No Known Home Medications 02/01/20 02/01/20 History Patient History Medical History Hyperlipidemia Kidney stones TIA (transient ischemic attack) Tobacco use Surgical History History of cholecystectomy History of hysterectomy Hx of tonsillectomy Family History Other Cancer Social History Smoking Status: Current every day smoker Cigarettes Per Day: 1 ppd x 28 years; Second Hand Exposure: No; Do You Dip or Chew Tobacco: No; Tobacco Cessation Education Requested by Patient: No Hx Alcohol Use: Yes Alcohol type: hard liquor Alcohol Intake Frequency: 2-4 x/Month Alcohol Intake Frequency Comment: 1-2 beers once week Hx Substance Use: No Preferred Language: [place]an Lath Hand Required: No Current Living Situation: Spouse and Family Other Information That Helps Us Care for You: No Feels Safe at Home: Yes Safety Concerns: Feels Safe At This Time Review of Systems Review of Systems: All systems reviewed & are unremarkable except as noted in HPI & below Physical Exam Physical Exam: General: Alert and oriented x 3 in no acute distress. Patient is well nourished and well kept. HEENT: Normocephalic Atraumatic. Inspection normal. Cranial Nerves 2-12 Grossly intact. Nares are clear. Neck is supple. Normal inspection of face. Normal inspection of neck. Neurologic: No deficits on inspection. Baseline for motor function and sensory. Psychologic: Normal affect. Respiratory: Nonlabored. No use of accessory muscles. No tachypnea or dyspnea. Cardiovascular: No tachycardia Skin: [place] and Dry. No rashes or visible lesions. Extremities: Moving without issues. No motor deficits on inspection Lymphatics: No edema Abdomen: Soft Non-distended. No acites. No rebound or guarding. Results & Data ([facility]) Vital Signs (Past 12 Hours) Vital Signs Temp Pulse Pulse Resp BP BP Pulse Ox 02/02/20 07:37 36.8 C 61 20 99/59 L 90 02/02/20 07:00 56 L 02/02/20 03:01 37.2 C 60 16 86/51 L 91 02/02/20 00:34 62 02/01/20 23:54 37.1 C 62 18 103/65 87 L PG Care Time/CCT Total # of Minutes Spent Total Time Spent with Patient: Total time spent is greater than 50% in coordination of care (as documented) at patient's floor/unit and/or counseling patient: Coding Level of Care Code 84093 Inpt Consult Level 5 Diagnoses CHARMAINE (acute kidney injury) N17.9 Hydronephrosis, right N13.30 Right ureteral calculus N20.1
[2020-02-02] MEDS ORDERED: CEFAZOLIN 250 MG/ML 1 GM VIAL ONE (11:07)
[2020-02-02] MEDS ORDERED: ONDANSETRON INJ 2 MG/ML 2 ML VIAL IV PRN (11:13)
[2020-02-02] MEDS ORDERED: fentaNYL citrate 100 MCG/2 ML VIAL IV PRN (11:13)
[2020-02-02] MEDS ORDERED: ATROPINE SULFATE 0.1 MG/ML 10ML SYR IV PRN (11:13)
[2020-02-02] MEDS ORDERED: DIATRIZOATE MEGLUMINE 30% 100ML VIAL INSTIL ONE (11:19)
--- NOTE | 2020-02-02 11:19 | Operative Report ---
PG Post Operative Report Pre & Post Diagnosis PRE: Obstructing stone Right ureter POST: Same Operation Date: 02/02/20 07:30 <No data on this case meets the specified criteria> I identified the patient and participated in the time-out.: Yes Procedure Cystoscopy with right retrograde pyelogram, stone extraction, dilation, aspiration of urine, and stent placment. Operation Date: 02/02/20 07:30 <No data on this case meets the specified criteria> Surgeon Óscar Escobedo, II, DO Biomedical Manager None Estimated Blood Loss 1 Findings Consistent with Post-Op Diagnosis Stent placed in good position. Specimens Urine Right Renal Pelvis Stone Right Ureter Drains 6 Fr Multilength without tether Anesthesia Type MAC Complications none Disposition Disposition: Recovery Room Indications Patient with obstruction. Risks and benefits discussed at length. Description of Procedure Patient was consented and brought back to the operating room. Patient was placed under anesthesia in the supine position and moved to the dorsal lithotomy position. Patient was prepped and draped in the regular sterile fashion. A time out was completed. A 30degree Cystoscope was placed into the bladder and the entire bladder was examined. The UO's were identified. The UO was dilated after a small stone fragment was grasped and extracted from the ureter. The UO was cannulized with a catheter and a retrograde pyelogram was completed. A wire was then placed. Urine was aspirated from the renal pelvis. With the wire in place, a 6 Fr Double J stent was placed. It was confirmed with fluoroscopy. With the stent in place, the bladder was emptied. The scope was removed. The patient was cleaned, aroused from anesthesia, and transferred to the pacu in stable condition having tolerated the procedure well with no complications. I was present and participated in all aspects of the procedure. The patient will be monitored in the PACU until transferred. Stone piece appeared to be stone fragment from full stone. Will likely need imaging to determine if remaining stone needs treatment and extraction. I attest to the content of the Intraoperative Record and any orders documented therein. Any exceptions are noted below.
--- NOTE | 2020-02-02 11:41 | Fluoroscopy Report ---
INTRAOPERATIVE RADIOGRAPHS CLINICAL HISTORY: Right ureteral stent placement. Fluoroscopy time: 30 seconds. FINDINGS: 2 spot fluoroscopic views of the right abdomen are correlated with abdominal CT dated 2019. Contrast in the right renal collecting system shows hydronephrosis. The images show the proxima l and distal ends of a right ureteral stent in appropriate position. No calcifications are clearly se en projecting along the course of the stent. IMPRESSION: Intraoperative images from a right ureteral stent placement procedure as above. Electronically signed by: Sampson Sawyer M.D. 02/02/2020 11:39 AM
--- NOTE | 2020-02-02 12:29 | Anesthesiology Progress Note ---
Date of Service February 02, 2020 Anesthesia Post Procedure Vital Signs Vital Signs: Temp Pulse Pulse Resp BP BP BP 02/02/20 12:23 37.0 C 96 H 20 163/76 H 02/02/20 11:50 36.8 C 49 L 16 104/66 02/02/20 11:44 36.5 C 48 L 18 98/60 L 02/02/20 11:40 36.5 C 50 L 18 108/66 02/02/20 11:30 62 20 95/72 L 02/02/20 11:21 36.5 C 54 L 16 99/66 L 02/02/20 10:49 36.9 C 52 L 18 103/69 02/02/20 07:37 36.8 C 61 20 99/59 L 02/02/20 07:00 56 L 02/02/20 03:01 37.2 C 60 16 86/51 L 02/02/20 00:34 62 02/01/20 23:54 37.1 C 62 18 103/65 02/01/20 20:44 75 02/01/20 18:52 36.4 C L 73 17 125/77 02/01/20 18:33 62 20 104/68 02/01/20 16:38 37.2 C 02/01/20 16:30 56 L 20 117/69 02/01/20 13:10 36.8 C 91 H 18 140/94 Pulse Ox 02/02/20 12:23 98 02/02/20 11:50 91 02/02/20 11:44 93 02/02/20 11:40 92 02/02/20 11:30 95 02/02/20 11:21 94 02/02/20 10:49 93 02/02/20 07:37 90 02/02/20 07:00 02/02/20 03:01 91 02/02/20 00:34 02/01/20 23:54 87 L 02/01/20 20:44 02/01/20 18:52 95 02/01/20 18:33 95 02/01/20 16:38 02/01/20 16:30 93 02/01/20 13:10 98 Pain Intensity Abdomen: Pain Intensity: 8 Transfer of Care Handoff Completed per policy Notes Mental Status: alert / awake / arousable Patient Amnestic to Procedure: Yes Nausea / Vomiting: adequately controlled Pain: adequately controlled Airway Patency, RR, SpO2: stable & adequate BP & HR: stable & adequate Hydration State: stable & adequate Anesthetic Complications: no major complications apparent
--- NOTE | 2020-02-02 13:07 | Hospitalist Progress Note ---
Date of Service February 02, 2020 Assessment & Plan (1) Right ureteral calculus: s/p cystoscopy with stone fragment removal and ureteral stent placement. Will start on Flomax to continue until follow-up with Urology later this week. Likely will need repeat imaging to ensure no further stone is present. Additionally patient is concerned about possible stent pain and would like some PRN Pyridium if needed. Dr. Escobedo also requesting a few days of Keflex. (2) Hydronephrosis, right: s/p R ureteral stent today (3) CHARMAINE (acute kidney injury): s/p urologic intervention. Cont to hydrate orally and follow-up with Urology later this week. It would be a good idea to get repeat chemistry panel and ensure resolution which may be done by PCP. (4) Ileus: Per CT a/p however patient vehemently denies any pain or nausea and abdominal exam is normal. Trial of food prior to discharge. (5) Tobacco use: -Smoking cessation encouraged -Patient denies nicotine patch at this time (6) DVT prophylaxis: DVT Prophylaxis -SCDs/ambulation Full Code Follows with Dr Lemons for routine care Daily Fang DO [facility] Admission and Anticipated Discharge Date Admission Date: February 01, 2020 Subjective starving and asking for food and a discharge. Imaging earlier today suggested an ileus, but patient denies pain, nausea, vomiting or other symptom related to an ileus. denies abdominal pain except for a small amount on the anterior LLQ post-operatively. Hasn't eaten in one week and repeatedly mentions this and is aggravated about not getting fed for many hours post-operatively. Review of Systems Review of Systems: All systems reviewed & are unremarkable except as noted in Subjective Physical Exam Physical Exam: CONSTITUTIONAL: WNWD, vitals as above, generally well-tessa earing EYES: normal conjunctivae, no scleral icterus ENT: MMM RESPIRATORY: clear to auscultation bilaterally, no crackles, rales or wheezes, normal respiratory effort CARDIOVASCULAR: regular rate and rhythm, S1 and 2 heard without murmurs, gallops or rubs, no JVD, no peripheral edema GASTROINTESTINAL: soft, nontender, nondistended, no CVA tenderness bilaterally, flank pain on the right appears to have improved. MUSCULOSKELETAL: strength 5/5 throughout, head is normocephalic and atraumatic, neck supple, normal palpation of chest wall without tenderness SKIN: warm and dry NEUROLOGIC: CN 2-12 grossly intact, no sensory deficit, normal cognition, no gross focal deficits. PSYCHIATRIC: alert cooperative and oriented to person, place and time. Results & Data Results & Data ([facility]) Vital Signs (Past 12 Hours) Vital Signs Temp Pulse Pulse Resp BP BP Pulse Ox 02/02/20 12:38 36.9 C 57 L 16 104/70 93 02/02/20 12:23 37.0 C 96 H 20 163/76 H 98 02/02/20 12:01 48 L 02/02/20 11:50 36.8 C 49 L 16 104/66 91 02/02/20 11:44 36.5 C 48 L 18 98/60 L 93 02/02/20 11:40 36.5 C 50 L 18 108/66 92 02/02/20 11:30 62 20 95/72 L 95 02/02/20 11:21 36.5 C 54 L 16 99/66 L 94 02/02/20 10:49 36.9 C 52 L 18 103/69 93 02/02/20 07:37 36.8 C 61 20 99/59 L 90 02/02/20 07:00 56 L 02/02/20 03:01 37.2 C 60 16 86/51 L 91 Laboratory Results Short CBC 02/01/20 02/02/20 Range/Units 15:45 06:12 WBC 15.66 H 10.01 (4.8-10.8) K/uL Hgb 16.4 H 13.0 D (12.0-16.0) g/dL Hct 46.4 38.9 (37-47) % Plt Count 350 298 (130-400) K/uL BMP 02/01/20 02/02/20 02/02/20 15:45 06:12 07:43 Sodium 139 139 Potassium 4.4 Cancelled Chloride 108 H 112 H Carbon Dioxide 24 20 L BUN 16 12 Creatinine 1.22 H 0.98 Glucose 91 100 H Calcium 9.4 8.4 L 02/02/20 09:04 Sodium Potassium 3.8 Chloride Carbon Dioxide BUN Creatinine Glucose Calcium Liver Function 02/01/20 Range/Units 15:45 Total Bilirubin 0.6 (0.2-1) mg/dl AST 23 (15-37) U/L ALT 25 (12-78) U/L Alkaline Phosphatase 96 (45-117) U/L Albumin 3.8 (3.4-5.0) gm/dl Urine 02/01/20 Range/Units 16:00 Urine Color Yellow Urine Appearance Cloudy A (Clear) Urine pH 5.0 (4.5-7.5) Ur Specific [place] 1.028 (1.000-1.030) Urine Protein Negative (Negative) Urine Glucose (UA) Negative (Negative) Medications Administered Current Inpatient Medications Acetaminophen (Acetaminophen 325 Mg Tab) 650 mg PO Q4H PRN PRN Reason: Pain or Fever Stop: 03/02/20 18:50 Atropine Sulfate (Atropine Sulfate 0.1 Mg/Ml 10ml Syr) 0.5 mg IV Q1M PRN PRN Reason: PACU Use-HR<40 &/or Bradycardi Stop: 02/02/20 19:13 Hydromorphone HCl (Hydromorphone Inj 0.5 Mg/0.5 Ml Syr) 0.5 mg IV Q4H PRN PRN Reason: Pain Stop: 02/15/20 18:50 Last Admin: 02/02/20 04:55 Dose: 0.5 mg Documented by: Sodium Chloride (Nss 1000ml) 1,000 mls @ 100 mls/hr IV .Q10H MARIA FERNANDA Stop: 02/02/20 14:50 Last Admin: 02/02/20 04:51 Dose: 100 mls/hr Documented by: Ceftriaxone Sodium 2,000 mg/ (Dextrose) 70 mls @ 140 mls/hr IV Q24H MARIA FERNANDA; Protocol Stop: 02/12/20 17:59 Ondansetron HCl (Ondansetron Inj 2 Mg/Ml 2 Ml Vial) 4 mg IV Q6H PRN PRN Reason: Nausea Stop: 03/02/20 18:50 Ondansetron HCl (Ondansetron Inj 2 Mg/Ml 2 Ml Vial) 4 mg IV ONCE PRN PRN Reason: PACU Use Only-Nausea/Vomiting Stop: 02/02/20 19:13
[2020-02-02] MEDS ORDERED: ACETAMINOPHEN 1,000 MG/100 ML VIAL IV PRN (13:11)
--- NOTE | 2020-02-02 17:47 | Discharge Summary ---
Date of Service February 02, 2020 Admission HPI Per Admitting Provider Pt is 54 y/o F with PMH dyslipidemia, possible TIA, kidney stones, tobacco use presented to ER with c/o R flank pain x 5 days. Patient states 5 days ago started with some right flank tenderness that radiated to right lower quadrant. Pain had been waxing and waning however this morning pain increased and has been constant throughout the day. Patient tried taking Aleve earlier in the week taking total 4 tablets without relief. Patient thought maybe flank pain was secondary to constipation however reports has been moving her bowels regularly. Today patient drinks 32 ounces of prune juice and since has had soft stools. Denies dysuria, hematuria, urinary frequency, urinary retention. History of kidney stones in the past needing stent. Denies fever/chills, diaphoresis, N/V, hematochezia, melena, VEL[place]SQUEZ, dizziness, syncope, vision changes, CP, SOB, orthopnea, palpitations, cough, sore throat, choking, otalgia, rhinorrhea, extremity weakness, extremity edema, rashes. Admission Exam Per Admitting Provider General: no distress, overweight Head: normocephalic, atraumatic Eyes: PERRL, EOM's intact, conjunctiva non-injected, anicteric ENT: normal inspection external ears, nose, mucous membranes moist Neck: supple, trachea midline Lungs: clear, no respiratory distress, no wheezing/rhonchi/rales CV: RRR, no murmur, no JVD, no pretibial edema Abd: normal BS, soft, +mild tenderness to palpation to R CVA, right flank, RLQ without rebound or guarding Ext: no cyanosis, no calf tenderness Neuro: A&O x 3, no focal deficits noted, normal affect Skin: warm, dry Principal Diagnosis R ureteral calculus s/p R ureteral stent placement and stone extraction Discharge Exam CONSTITUTIONAL: WNWD, vitals as above, generally well-appearing EYES: normal conjunctivae, no scleral icterus ENT: MMM RESPIRATORY: clear to auscultation bilaterally, no crackles, rales or wheezes, normal respiratory effort CARDIOVASCULAR: regular rate and rhythm, S1 and 2 heard without murmurs, gallops or rubs, no JVD, no peripheral edema GASTROINTESTINAL: soft, nontender, nondistended, no CVA tenderness bilaterally, flank pain on the right appears to have improved. MUSCULOSKELETAL: strength 5/5 throughout, head is normocephalic and atraumatic, neck supple, normal palpation of chest wall without tenderness SKIN: warm and dry NEUROLOGIC: CN 2-12 grossly intact, no sensory deficit, normal cognition, no gross focal deficits. PSYCHIATRIC: alert cooperative and oriented to person, place and time. Discharge Data Allergies Allergy/AdvReac Type Severity Reaction Status Date / Time No Known Allergies Allergy Unknown Verified 02/01/20 15:48 Consultations 02/01/20 17:28 ED Decision to Admit Stat 02/01/20 18:51 Consult Urology Routine 02/02/20 01:00 Consult Case Management - Discharge Planning Routine Procedures Performed Operation Date: 02/02/20 07:30 Actual Procedures p Cystoscopy, Right Retrograde Pyleogram, Ureteral Dilation, Right Ureteral Stone Extraction, Aspiration of Urine and Right Ureteral Stent Insertion(Right) - Óscar Escobedo, DO Ordered Studies 02/01/20 15:31 CT abd pelvis IV con only Stat 02/02/20 13:00 FL fluoroscopy <1hr Routine FL retrograde includes kub Routine Hospital Course (1) Right ureteral calculus: s/p cystoscopy with stone fragment removal and ureteral stent placement. Will start on Flomax to continue until follow-up with Urology later this week. Likely will need repeat imaging to ensure no further stone is present. Additionally patient is concerned about possible stent pain and would like some PRN Pyridium if needed. This was provided at discharge as well as Keflex, a request from Dr. Mims. (2) Hydronephrosis, right: s/p R ureteral stent today (3) CHARMAINE (acute kidney injury): s/p urologic intervention. Cont to hydrate orally and following up with Urology later this week. It would be a good idea to get repeat chemistry panel and ensure resolution which may be done by PCP. (4) Ileus: Per CT a/p however patient vehemently denies any pain or nausea and abdominal exam is normal. Trial of food prior to discharge was successful and she was able to leave in stable condition (5) Tobacco use: -Smoking cessation encouraged -Patient denies nicotine patch at this time Total Time Total Time Spent Total Time Spent (In Minutes): 60 Total Time Includes: Examination of the Patient, Discharge Planning, Medication Reconciliation and Communication With Other Providers Discharge Plan Discharge Items Patient Disposition: Home - Self-Care Reason For Visit: URETERAL CALCULUS HYDRONEPHROSIS Discharge Diagnosis: R ureteral calculus s/p R ureteral stent placement and stone extraction Condition on Discharge: Good Activity: Resume your previous activity Non-emergency contact: Primary Care Provider Call non-emergency contact if: you have any medication questions, your symptoms worsen, your pain is not controlled, your pain is worsening, your pain is unusual for you, your pain is concerning for you and you have a fever Follow-up/Referrals: Mane Leomns MD [Primary Care Provider] - Diet: Regular Addtl Attending Provider Instructions: Please take all medications as instructed below on the discharge medication list. You are being given FLOMAX which will help move any remaining fragments of stone through. Continue to stay well-hydrated during this time. You are being given PYRIDIUM to take only in the setting of severe stent pain. Otherwise just take Tylenol or Ibuprofen for any pain. You are being given KEFLEX per your surgeon for infection prevention post operatively. Dr. Solomon's staff will contact you after the weekend to setup follow-up. It is recommended that you see your primary care physician (PCP) for a hospital follow-up check on how you are doing after returning home. You also have a slightly worse kidney function. It is recommended to stay hydrated and have your PCP repeat some nonfasting bloodwork in a few days to ensure this has resolved. It is strongly recommended that you quit smoking as this is terrible for your health. It was a pleasure taking care of you! Please call if you have any questions or problems. You can reach a [facility] hospitalist on duty at [facility] 24 hours a day by calling [phone]. Take care of yourself. Daily Fang, [facility] Hospitalist Pending Studies at Discharge: Yes Studies:: urine culture Stand-Alone Forms: My [facility], Smoking Cessation Medications and DC Order Prescriptions: New cephalexin [Keflex] 500 mg capsule 500 mg PO Q6H Qty: 20 RF: 0 phenazopyridine [Pyridium] 200 mg tablet 200 mg PO TID PRN (Reason: severe flank pain) Qty: 10 RF: 0 tamsulosin [Flomax] 0.4 mg capsule 0.4 mg PO HS Qty: 14 RF: 0 Discharge Orders: Discharge Order (Routine); Ordered 02/02/20 Ordered By: Daily Fang Admission Data Admit Date/Time: 02/01/20 17:46 Attending Provider: Daily Fang Admit Provider: Hank Sanders Primary Care Provider: Mane Lemons Other Providers: Óscar Escobedo Other Interventions: Discharge Summary Assessment (RN) Last Done: 02/02/20 18:26
[2020-02-02] MEDS ORDERED: cefTRIAXone SODIUM 2,000 MG in DEXTROSE 5% 50 ML IV SCH (18:00)
[2020-02-08 11:02] LABS: Component 2 DNR; Source RIGHT URETERAL STONE
--- NOTE | 2020-02-12 07:41 | Coding Query ---
To promote full compliance with coding requirements relating to patient care, provider participation is requested in all cases of scenery builder uncertainty. Please assist us with the question(s) below: Coding Question(s): The diagnosis below was documented in the H&P, then subsequently fell off all further documentation. Please indicate if it is still a possible diagnosis or ruled out. Physician's Response(s): POSSIBLE PYELONEPHRITIS ( ) Diagnosed and POA ( ) Acute Pyelonephritis ( ) Chronic Pyelonephritis ( ) Unspecified Pyelonephritis ( ) Diagnosed and not POA ( ) Acute Pyelonephritis ( ) Chronic Pyelonephritis ( ) Unspecified Pyelonephritis ( x ) Ruled out ( ) Other (please specify) UA/UCx was negative for infection. Flank pain was 2/2 stone. MTDD
--- NOTE | 2020-02-12 07:43 | Coding Query ---
CODING QUERY To promote full compliance with coding requirements relating to patient care, provider participation is requested in all cases of tire mold tester uncertainty. Please assist us with the question(s) below: Coding Question(s): There is documentation of Ileus in the record with the Discharge Summary documenting, "Ileus: Per CT a/p however patient vehemently denies any pain or nausea and abdominal exam is normal. Trial of food prior to discharge was successful and she was able to leave in stable condition". Please specify below, regarding Ileus. ( ) Possible Ileus was treated/evaluated during this admission (x ) Ileus is Ruled-Out ( ) Other: Please Specify Physician's Response(s): Pt never clinically had an ileus, this was read as a possibility only by imaging. Thank you Gail Gilmore Principal Diagnosis: "that condition established after study, to be chiefly responsible for occasioning the admission of the patient to the hospital for care." Co-Existing Principal Diagnosis: "when two or more diagnoses equally meet the criteria for principal diagnosis as determined by the circumstances of admission, diagnostic work up, and/or therapy provided, and the Alphabetic Index, Tabular List, or another coding guideline does not provide sequencing direction, any one of the diagnoses may be sequenced first." "When the physician has documented what appears to be a current diagnosis in the body of the record, but has not included the diagnosis in the final diagnostic statement, the physician should be asked whether the diagnosis should be added." (Source Coding [facility] 2 QTR90. p3-4) GUILLAUME
== END 2020-02-02 18:30 | disposition home or self-care (01) | DRG 661 ==
LOC: ED 12:51 → SUATTDRO 17:46 → 2W 17:46